=== PATIENT | female | born 1945 | race Caucasian/White ===

== ENCOUNTER → 2017-09-16 | Outpatient (CLI) | payer MEDICARE | LOC: M RAD 14:35 | DX: J40 Bronchitis, not specified as acute or chronic (principal) | CPT/HCPCS: 71046 ==

== ENCOUNTER 2017-12-12 08:32 | Emergency (ER) | payer MEDICARE ==
[2017-12-12] MEDS: FLUORESCEIN OPHTH 1 MG STRIP OS (09:10)
[2017-12-12] MEDS: TETRACAINE 0.5% OPHTH SOLN 4ML OS (09:11)
[2017-12-12] MEDS: ACETAMINOPHEN TAB 650MG DOSE (2X325MG) PO (10:04)
== END 2017-12-12 10:16 | disposition home or self-care (01) ==
LOC: M ED 08:32
DX: B02.9 Zoster without complications (principal); R01.1 Cardiac murmur, unspecified; M81.0 Age-related osteoporosis without current pathological fracture; F17.200 Nicotine dependence, unspecified, uncomplicated; Z79.899 Other long term (current) drug therapy; Z88.8 Allergy status to other drugs, medicaments and biological substances
CPT/HCPCS: 99283

== ENCOUNTER 2017-12-17 21:52 | Emergency (ER) | payer MEDICARE | END 2017-12-17 22:59 | disposition left against medical advice (07) | LOC: M ED 21:52 | DX: H57.9 Unspecified disorder of eye and adnexa (principal); L98.9 Disorder of the skin and subcutaneous tissue, unspecified; Z53.21 Procedure and treatment not carried out due to patient leaving prior to being seen by health care provider ==

== ENCOUNTER → 2020-04-09 | Outpatient (REF) | payer MEDICARE ==
[~2020-04-09] MED LIST: AMIT10TA PO; AMOX875T2 PO; ERYTOIN8 OS; FLUO40CA; MELO15TA28; MULT1TAB10 PO; PROL60SO SC; VALA1TAB5 PO
== END ==
LOC: M LAB REF 18:36
PROVIDERS: ATTEND Physician Assistant
DX: R30.0 Dysuria (principal)

== ENCOUNTER 2023-04-11 14:34 | Inpatient (IN) | payer MEDICARE ==
[~2023-04-11] VITALS: Ht 165.1 cm; Wt 83.7 kg
[~2023-04-11 14:34] MED LIST changes: -AMIT10TA PO; +AMIT10TA7 PO
[2023-04-11 15:43] LABS: HEMATOCRIT 43.1 % (36.0-47.0); HEMOGLOBIN 14.1 g/dl (12.0-15.5); MEAN CORPUSCULAR HEMOGLOBIN 30.9 pg (27.0-33.0); MEAN CORPUSCULAR HGB CONC 32.7 g/dl (32.0-36.5); MEAN CORPUSCULAR VOLUME 94.3 fl (80.0-96.0); PLATELET COUNT, AUTOMATED 218 10^3/uL (150-450); RED BLOOD COUNT 4.57 10^6/uL (4.00-5.40); WHITE BLOOD COUNT 9.8 10^3/uL (4.0-10.0)
[2023-04-11 16:13] LABS: BLOOD UREA NITROGEN 10 MG/DL (9-23); CALCIUM LEVEL 8.9 MG/DL (8.3-10.6); CARBON DIOXIDE LEVEL 30 MMOL/L (20-31); CHLORIDE LEVEL 104 MMOL/L (98-107); CREATININE FOR GFR 0.68 MG/DL (0.55-1.30); GLOMERULAR FILTRATION RATE > 60.0 (>39); GLUCOSE, FASTING 115 MG/DL (74-106); POTASSIUM SERUM 3.9 MMOL/L (3.5-5.1); SODIUM LEVEL 140 MMOL/L (136-145)
[2023-04-11 16:23] LABS: CPK CREATINE PHOSPHOKINASE 80 U/L (34-145); MB/CK RELATIVE INDEX 1.25 (< OR =4)
[2023-04-11] MEDS ORDERED: ISOVUE-370 76% 100ML VIAL As Ordered ONE ×2 (16:57→17:08)
[2023-04-11 17:41] LABS: CK-MB VALUE MASS < 1.0 NG/ML (<3.6)
[2023-04-11 17:46] LABS: RSV AMPLIFICATION NEGATIVE (NEGATIVE)
[2023-04-11 17:47] LABS: CPK CREATINE PHOSPHOKINASE 86 U/L (34-145); MB/CK RELATIVE INDEX 1.16 (< OR =4)
[2023-04-11 17:52] LABS: INR 1.02; PROTHROMBIN TIME 13.1 SECONDS (12.5-14.5)
[2023-04-11 18:36] LABS: ALBUMIN 3.6 G/DL (3.2-5.2); ALKALINE PHOSPHATASE 83 U/L (46-116); ALT/SGPT 23 U/L (7.0-40); AST/SGOT 14 U/L (<34); BILIRUBIN,DIRECT 0.1 MG/DL (<0.4); BILIRUBIN,TOTAL 0.4 MG/DL (0.3-1.2); TOTAL PROTEIN 6.4 G/DL (5.7-8.2)
[2023-04-11] MEDS ORDERED: MED REC IN PROGRESS XX SCH (19:40)
[2023-04-11] MEDS ORDERED: ROSU10TA6 PO (20:02)
[2023-04-11] MEDS ORDERED: AMLO2.5T3 PO (20:02)
[2023-04-11] MEDS ORDERED: TOLT4CAP3 PO (20:02)
[2023-04-11] MEDS ORDERED: HOME MED LIST COMPLETE! XX SCH (20:05)
[2023-04-11] MEDS ORDERED: VITMTA PO (20:37)
[2023-04-11] MEDS: ROSUVASTATIN 10 MG TAB (CRESTOR) PO SCH (22:38)
[2023-04-11] MEDS ORDERED: ACET650T61 PO (22:45)
[2023-04-11] MEDS ORDERED: MELO15TA28 PO (22:45)
[2023-04-11] MEDS ORDERED: C 50TAB PO (22:47)
[2023-04-11] MEDS ORDERED: FLUO40CA PO (22:47)
[2023-04-11] MEDS ORDERED: OYST500T92 PO (22:47)
[2023-04-12] VITALS (14 sets, daily range): BP systolic 127–159; BP diastolic 62–102; TEMP 97.4–98; O2SAT 94–99
[2023-04-12 07:02] LABS: HEMATOCRIT 39.5 % (36.0-47.0); MEAN CORPUSCULAR HEMOGLOBIN 31.1 pg (27.0-33.0); MEAN CORPUSCULAR HGB CONC 32.9 g/dl (32.0-36.5); MEAN CORPUSCULAR VOLUME 94.5 fl (80.0-96.0); PLATELET COUNT, AUTOMATED 178 10^3/uL (150-450); RED BLOOD COUNT 4.18 10^6/uL (4.00-5.40)
[2023-04-12 07:28] LABS: BLOOD UREA NITROGEN 10 MG/DL (9-23); CALCIUM LEVEL 8.7 MG/DL (8.3-10.6); CARBON DIOXIDE LEVEL 30 MMOL/L (20-31); CHLORIDE LEVEL 105 MMOL/L (98-107); CREATININE FOR GFR 0.59 MG/DL (0.55-1.30); GLOMERULAR FILTRATION RATE > 60.0 (>39); GLUCOSE, FASTING 97 MG/DL (74-106); POTASSIUM SERUM 4.2 MMOL/L (3.5-5.1); SODIUM LEVEL 142 MMOL/L (136-145)
[2023-04-12] MEDS: MULTIVITAMINS/MINERALS THERAP 1 TAB PO SCH (07:39)
[2023-04-12] MEDS: FLUoxetine 20MG CAP PO SCH (07:40)
[2023-04-12] MEDS: ASCORBIC ACID 500 MG TAB PO SCH (07:40)
[2023-04-12] MEDS: ENOXAPARIN 40MG/0.4ML SYRINGE (J1650 PER 10MG) SC SCH (07:40)
[2023-04-12] MEDS: TOLTERODINE TARTRATE 2 MG LA CAP (DETROL LA) PO SCH (10:28)
[2023-04-12 12:19] LABS: CHOLESTEROL LEVEL 152 MG/DL (<200); CHOLESTEROL RISK RATIO 2.32 (<5); HDL CHOLESTEROL 65.5 MG/DL (>40); LDL CHOLESTEROL 69.9 MG/DL (<100); NON-HDL-C 86.5 MG/DL; TRIGLYCERIDES LEVEL 83 MG/DL (<150)
[2023-04-12] MEDS: ASPIRIN 81MG ENTERIC TABLET PO SCH (12:20)
[2023-04-12] MEDS ORDERED: MELOXICAM (MOBIC) 7.5 MG TAB PO SCH (21:00)
[2023-04-12] MEDS: ROSUVASTATIN 10 MG TAB (CRESTOR) PO SCH (21:02)
[2023-04-13] VITALS: BP 136/63; TEMP 97.2; O2SAT 95
[2023-04-13 04:00] VITALS: BP 160/74; TEMP 97; O2SAT 95
[2023-04-13 06:31] LABS: MEAN CORPUSCULAR HEMOGLOBIN 31.1 pg (27.0-33.0); MEAN CORPUSCULAR HGB CONC 33.3 g/dl (32.0-36.5); MEAN CORPUSCULAR VOLUME 93.3 fl (80.0-96.0); PLATELET COUNT, AUTOMATED 171 10^3/uL (150-450); RED BLOOD COUNT 4.18 10^6/uL (4.00-5.40); WHITE BLOOD COUNT 6.8 10^3/uL (4.0-10.0)
[2023-04-13 07:01] LABS: ALBUMIN 3.2 G/DL (3.2-5.2); ALKALINE PHOSPHATASE 70 U/L (46-116); ALT/SGPT 19 U/L (7.0-40); AST/SGOT 12 U/L (<34); BILIRUBIN,TOTAL 0.5 MG/DL (0.3-1.2); BLOOD UREA NITROGEN 8 MG/DL (9-23); CALCIUM LEVEL 8.4 MG/DL (8.3-10.6); CARBON DIOXIDE LEVEL 30 MMOL/L (20-31); CHLORIDE LEVEL 106 MMOL/L (98-107); CREATININE FOR GFR 0.58 MG/DL (0.55-1.30); GLOMERULAR FILTRATION RATE > 60.0 (>39); GLUCOSE, FASTING 96 MG/DL (74-106); SODIUM LEVEL 141 MMOL/L (136-145); TOTAL PROTEIN 5.9 G/DL (5.7-8.2)
[2023-04-13 08:00] VITALS: BP 147/69; TEMP 98.3; O2SAT 96
[2023-04-13] MEDS ORDERED: MAALOX 30 ML SUSP *UDC PO PRN (08:15)
[2023-04-13] MEDS: FLUoxetine 20MG CAP PO SCH (08:28)
[2023-04-13] MEDS: ASPIRIN 81MG ENTERIC TABLET PO SCH (08:28)
[2023-04-13] MEDS: TOLTERODINE TARTRATE 2 MG LA CAP (DETROL LA) PO SCH (08:28)
[2023-04-13] MEDS: ENOXAPARIN 40MG/0.4ML SYRINGE (J1650 PER 10MG) SC SCH (08:28)
[2023-04-13] MEDS: MULTIVITAMINS/MINERALS THERAP 1 TAB PO SCH (08:28)
[2023-04-13 08:29] VITALS: BP 147/69
[2023-04-13] MEDS: ASCORBIC ACID 500 MG TAB PO SCH (08:29)
[2023-04-13] MEDS ORDERED: PANTOPRAZOLE 40MG TAB (PROTONIX) PO SCH (09:00)
[2023-04-13 15:27] VITALS: BP 124/58; TEMP 97.4; O2SAT 96
[2023-04-13 16:19] LABS: MAGNESIUM LEVEL 1.9 MG/DL (1.8-2.4); PHOSPHORUS LEVEL 3.9 MG/DL (2.4-5.1)
[2023-04-13 20:00] VITALS: BP 132/92; TEMP 97.6; O2SAT 96
[2023-04-13] MEDS: ROSUVASTATIN 10 MG TAB (CRESTOR) PO SCH (20:36)
[2023-04-14] VITALS (7 sets, daily range): BP systolic 137; BP diastolic 60; TEMP 97.6; O2SAT 93–97
[2023-04-14 06:23] LABS: HEMATOCRIT 39.1 % (36.0-47.0); HEMOGLOBIN 13.1 g/dl (12.0-15.5); MEAN CORPUSCULAR HEMOGLOBIN 31.3 pg (27.0-33.0); MEAN CORPUSCULAR HGB CONC 33.5 g/dl (32.0-36.5); MEAN CORPUSCULAR VOLUME 93.3 fl (80.0-96.0); PLATELET COUNT, AUTOMATED 170 10^3/uL (150-450); RED BLOOD COUNT 4.19 10^6/uL (4.00-5.40); WHITE BLOOD COUNT 7.9 10^3/uL (4.0-10.0)
[2023-04-14 06:59] LABS: ALBUMIN 3.1 G/DL (3.2-5.2); ALKALINE PHOSPHATASE 71 U/L (46-116); ALT/SGPT 22 U/L (7.0-40); AST/SGOT 16 U/L (<34); BILIRUBIN,TOTAL 0.4 MG/DL (0.3-1.2); BLOOD UREA NITROGEN 11 MG/DL (9-23); CALCIUM LEVEL 8.9 MG/DL (8.3-10.6); CARBON DIOXIDE LEVEL 31 MMOL/L (20-31); CHLORIDE LEVEL 106 MMOL/L (98-107); CREATININE FOR GFR 0.61 MG/DL (0.55-1.30); GLOMERULAR FILTRATION RATE > 60.0 (>39); GLUCOSE, FASTING 93 MG/DL (74-106); POTASSIUM SERUM 4.5 MMOL/L (3.5-5.1); SODIUM LEVEL 142 MMOL/L (136-145); TOTAL PROTEIN 5.8 G/DL (5.7-8.2)
[2023-04-14] MEDS ORDERED: PROT20TA11 PO (10:27)
[2023-04-14] MEDS ORDERED: ASPI81CH33 PO (10:44)
== END 2023-04-14 07:48 | disposition home or self-care (01) | DRG 312 ==
LOC: M ED 14:34 → M ED INP 19:10 → ENRESERV 04-12 08:05 → M ICU 04-12 09:00
PROVIDERS: ADMIT Internal Medicine Nephrology; ATTEND Internal Medicine
PROC: B246ZZZ Ultrasonography of Right and Left Heart (ICD-10-PCS; principal; 2023-04-12)
DX: R55 Syncope and collapse (principal); R42 Dizziness and giddiness; I10 Essential (primary) hypertension; E78.5 Hyperlipidemia, unspecified; R91.1 Solitary pulmonary nodule; I35.0 Nonrheumatic aortic (valve) stenosis; G47.33 Obstructive sleep apnea (adult) (pediatric); I65.02 Occlusion and stenosis of left vertebral artery; M79.7 Fibromyalgia; F17.200 Nicotine dependence, unspecified, uncomplicated; M81.0 Age-related osteoporosis without current pathological fracture; M15.9 Polyosteoarthritis, unspecified; F32.A Depression, unspecified; Z98.84 Bariatric surgery status; Z98.41 Cataract extraction status, right eye; Z98.42 Cataract extraction status, left eye

== ENCOUNTER → 2025-03-04 | Outpatient (CLI) | payer MEDICARE ==
[~2025-03-04] MED LIST changes: +ACET650T61 PO; +AMIT10TA11 PO; -AMIT10TA7 PO; +AMLO2.5T3 PO; +ASPI81CH33 PO; +C 50TAB PO; +DENO60SY2 SC; +FLUO40CA PO; +MELO15TA28 PO; +OYST500T92 PO; -PROL60SO SC; +PROT20TA11 PO; +ROSU10TA61 PO; +TOLT4CAP3 PO; +VITMTA PO; +wheel chair
== END ==
LOC: M SOG 07:05
PROVIDERS: ATTEND Orthopaedic Surgery
DX: S92.354A Nondisplaced fracture of fifth metatarsal bone, right foot, initial encounter for closed fracture (principal); Y93.9 Activity, unspecified; Y92.9 Unspecified place or not applicable